=== PATIENT | female | born 2000 | race Caucasian/White ===

== ENCOUNTER 2020-11-28 13:39 | Emergency (ER) | payer OTHER ==
[~2020-11-28] VITALS: Ht 162.6 cm; Wt 57.0 kg
[2020-11-28 13:41] VITALS: BP 116/64
[2020-11-28] MEDS ORDERED: LORAZEPAM 0.5MG TABLET PO ONE (14:15)
== END 2020-11-28 15:44 | disposition home or self-care (01) ==
LOC: ER 13:39
DX: F41.0 Panic disorder [episodic paroxysmal anxiety] (principal); F32.9 Major depressive disorder, single episode, unspecified; F41.9 Anxiety disorder, unspecified
CPT/HCPCS: 99283

== ENCOUNTER 2022-12-10 18:49 | Emergency (ER) | payer SELFPAY ==
[~2022-12-10] VITALS: Ht 165.1 cm; Wt 73.0 kg
[2022-12-10 19:05] VITALS: BP 130/64; PULSE 76; RESP 16; TEMP 98.9; O2SAT 100
== END 2022-12-10 19:24 | disposition left against medical advice (07) ==
LOC: ER 18:49
DX: T67.5XXA Heat exhaustion, unspecified, initial encounter (principal); Z53.21 Procedure and treatment not carried out due to patient leaving prior to being seen by health care provider; X58.XXXA Exposure to other specified factors, initial encounter; Y93.89 Activity, other specified; Y92.89 Other specified places as the place of occurrence of the external cause; Y99.8 Other external cause status
CPT/HCPCS: 99281